=== PATIENT | male | born 1955 | race Caucasian/White ===

== ENCOUNTER → 2020-05-20 | Outpatient (CLI) | payer SELFPAY | LOC: DIA.ED 11:20 | DX: E11.40 Type 2 diabetes mellitus with diabetic neuropathy, unspecified (principal); Z79.4 Long term (current) use of insulin; I10 Essential (primary) hypertension | CPT/HCPCS: G0108 ==

== ENCOUNTER → 2020-06-03 | Outpatient (CLI) | payer SELFPAY | LOC: DIA.ED 13:08 | DX: E11.40 Type 2 diabetes mellitus with diabetic neuropathy, unspecified (principal); Z79.4 Long term (current) use of insulin; I10 Essential (primary) hypertension | CPT/HCPCS: G0108 ==

== ENCOUNTER 2022-01-03 11:54 | Emergency (ER) | payer MEDICARE ==
[~2022-01-03] VITALS: Ht 185.4 cm; Wt 81.8 kg
[2022-01-03 12:10] VITALS: TEMP 98.1
[2022-01-03] MEDS ORDERED: NOVOLOG 100U100 U/M1 SQ (12:26)
[2022-01-03 12:43] LABS: BASO # 0.1 K/mm3 (0.0-0.2); BASO % 0.9 % (0.0-2.0); EOS # 0.1 K/mm3 (0.0-0.7); EOS % 0.7 % (0.0-4.0); GRAN # 8.3 K/mm3 (1.4-6.5); GRAN % 81.2 % (42.2-75.2); HEMATOCRIT 40.4 % (42.0-52.0); HEMOGLOBIN 14.3 g/dl (13.5-18.0); LYMPH # 1.3 K/mm3 (1.2-3.4); LYMPH % 12.5 % (20.0-51.0); MEAN CELL VOLUME 87 fl (80.0-100.0); MEAN CORPUSCULAR HEMOGLOBIN 31 pg (27-31); MEAN CORPUSCULAR HGB CONC 35 g/dl (33.0-37.0); MONO # 0.5 K/mm3 (0.1-0.6); MONO % 4.4 % (1.7-9.3); PLATELET COUNT 223 K/mm3 (130-400); RED BLOOD COUNT 4.65 M/mm3 (4.20-5.60); REDCELL DISTRIBUTION WIDTH-CV 13.2 % (11.5-14.5)
[2022-01-03 13:01] LABS: ALANINE AMINOTRANSFERASE 23 U/L (0-55); ALBUMIN 3.6 gm/dL (3.4-4.8); ALKALINE PHOSPHATASE 124 U/L (40-150); ANION GAP 12 mmol/L (7-16); AST,SGOT 14 U/L (5-34); BILIRUBIN,TOTAL 0.3 mg/dL (0.2-1.2); BLOOD UREA NITROGEN 15 mg/dL (8-26); CALCIUM 8.7 mg/dL (8.4-10.2); CARBON DIOXIDE 22 mmol/L (23-31); CHLORIDE 108 mmol/L (98-107); CREATININE, serum 1.48 mg/dL (0.72-1.25); GLUCOSE 67 mg/dL (70-99); POTASSIUM 3.4 mmol/L (3.5-4.5); SODIUM 142 mmol/L (136-145); TOTAL PROTEIN 6.6 gm/dL (6.2-8.1)
[2022-01-03 13:02] LABS: LIPASE < 4 U/L (8-78)
[2022-01-03 13:20] LABS: TROPONIN-I 0.014 ng/mL (0.00-0.033); TSH w REFLEX 0.843 uIU/mL (0.350-4.940)
[2022-01-03 13:30] LABS: COLLECTION METHOD CLEAN CATCH
[2022-01-03 13:39] LABS: MUCOUS Present (NOT PRESENT); SQUAMOUS EPITHELIAL 0-2 /hpf (0-10); URINE BACTERIA None Seen /hpf (NONE SEEN)
[2022-01-03 13:41] LABS: PH 5.5 (5.0-8.5); URINE APPEARANCE Clear (CLEAR/HAZY); URINE COLOR Amber (YELLOW); URINE GLUCOSE 2+ (NEGATIVE); URINE KETONE Negative (NEGATIVE); URINE PROTEIN(semi-quant) 3+ (NEGATIVE)
[2022-01-03 13:42] LABS: URINE BLOOD 1+ (NEGATIVE); URINE NITRATE Negative (NEGATIVE); URINE UROBILINOGEN 0.2 E.U/dL (0.2-1.0)
[2022-01-03 14:16] VITALS: BP 164/90; PULSE 73
== END 2022-01-03 14:18 | disposition home or self-care (01) ==
LOC: COL.ER 11:54
PROVIDERS: Emergency Medicine
DX: E87.6 Hypokalemia (principal); R63.4 Abnormal weight loss; E11.9 Type 2 diabetes mellitus without complications; Z79.4 Long term (current) use of insulin; R79.89 Other specified abnormal findings of blood chemistry; R31.9 Hematuria, unspecified; F17.210 Nicotine dependence, cigarettes, uncomplicated; Z68.23 Body mass index [BMI] 23.0-23.9, adult; Z20.822 Contact with and (suspected) exposure to COVID-19

== ENCOUNTER → 2022-05-26 | Outpatient (CLI) | payer MEDICARE ==
[~2022-05-26] MED LIST: NOVOLOG 100U100 U/M1 SQ
== END ==
LOC: COL.RAD 07:52
DX: I70.213 Atherosclerosis of native arteries of extremities with intermittent claudication, bilateral legs (principal)

== ENCOUNTER 2023-11-25 16:05 | Emergency (ER) | payer MEDICARE ==
[~2023-11-25] VITALS: Ht 185.4 cm; Wt 56.8 kg
[2023-11-25 16:07] VITALS: TEMP 98
[2023-11-25] MEDS ORDERED: NS 1,000 ML IV ONE (16:30)
[2023-11-25 17:09] LABS: BASO # 0.1 K/mm3 (0.0-0.2); BASO % 1.2 % (0.0-2.0); EOS # 0.1 K/mm3 (0.0-0.7); EOS % 0.7 % (0.0-4.0); GRAN # 5.3 K/mm3 (1.4-6.5); GRAN % 72.2 % (42.2-75.2); LYMPH # 1.5 K/mm3 (1.2-3.4); LYMPH % 20.7 % (20.0-51.0); MEAN CELL VOLUME 94 fl (80.0-100.0); MEAN CORPUSCULAR HGB CONC 34 g/dl (33.0-37.0); MONO # 0.4 K/mm3 (0.1-0.6); MONO % 4.8 % (1.7-9.3); PLATELET COUNT 270 K/mm3 (130-400); RED BLOOD COUNT 2.49 M/mm3 (4.20-5.60); REDCELL DISTRIBUTION WIDTH-CV 16.1 % (11.5-14.5)
[2023-11-25 17:17] LABS: HEMATOCRIT 23.3 % (42.0-52.0); HEMOGLOBIN 7.8 g/dl (13.5-18.0); MEAN CORPUSCULAR HEMOGLOBIN 31 pg (27-31)
[2023-11-25 17:25] LABS: ALANINE AMINOTRANSFERASE 13 U/L (0-55); ALBUMIN 2.2 g/dL (3.4-4.8); ALKALINE PHOSPHATASE 115 U/L (40-150); ANION GAP 8 mmol/L (7-16); AST,SGOT 9 U/L (5-34); BILIRUBIN,TOTAL 0.1 mg/dL (0.2-1.2); BLOOD UREA NITROGEN 42 mg/dL (8-26); CALCIUM 7.8 mg/dL (8.4-10.2); CHLORIDE 113 mEq/L (98-107); CREATININE, serum 1.68 mg/dL (0.72-1.25); GLUCOSE 375 mg/dL (70-99); POTASSIUM 4.5 mEq/L (3.5-4.5); SODIUM 140 mEq/L (136-145)
[2023-11-25 17:30] LABS: ACETONE,SERUM NEGATIVE
[2023-11-25] MEDS ORDERED: Insulin Regular Human (NovoLIN R/HumuLIN R) IV ONE (17:45)
[2023-11-25 19:10] VITALS: BP 120/78; PULSE 83
== END 2023-11-25 19:10 | disposition home or self-care (01) ==
LOC: COL.ER 16:05
PROVIDERS: Physician Assistant
DX: E11.65 Type 2 diabetes mellitus with hyperglycemia (principal); Z79.4 Long term (current) use of insulin; Z87.891 Personal history of nicotine dependence
CPT/HCPCS: J1815; J7030

== ENCOUNTER 2023-12-17 10:56 | Emergency (ER) | payer MEDICARE ==
[~2023-12-17] VITALS: Ht 185.4 cm; Wt 52.7 kg
[2023-12-17 10:57] VITALS: TEMP 97.5
[2023-12-17] MEDS ORDERED: Dextrose 50% Water 25 GM/50 ML SYRINGE IV ONE (12:00)
[2023-12-17 12:15] LABS: BASO # 0.1 K/mm3 (0.0-0.2); BASO % 0.5 % (0.0-2.0); EOS # 0.1 K/mm3 (0.0-0.7); EOS % 0.4 % (0.0-4.0); GRAN # 13.9 K/mm3 (1.4-6.5); LYMPH # 1.5 K/mm3 (1.2-3.4); MEAN CELL VOLUME 95 fl (80.0-100.0); MEAN CORPUSCULAR HGB CONC 32 g/dl (33.0-37.0); MEAN PLATELET VOLUME 10.5 fl (7.4-10.4); MONO # 0.6 K/mm3 (0.1-0.6); MONO % 3.7 % (1.7-9.3); PLATELET COUNT 309 K/mm3 (130-400); RED BLOOD COUNT 2.76 M/mm3 (4.20-5.60)
[2023-12-17 12:21] LABS: HEMATOCRIT 26.1 % (42.0-52.0); HEMOGLOBIN 8.4 g/dl (13.5-18.0); MEAN CORPUSCULAR HEMOGLOBIN 30 pg (27-31)
[2023-12-17 12:43] LABS: BILIRUBIN,TOTAL 0.2 mg/dL (0.2-1.2); CREATININE, serum 1.39 mg/dL (0.72-1.25); POTASSIUM 3.6 mEq/L (3.5-4.5); TOTAL PROTEIN 5.7 g/dl (6.2-8.1)
[2023-12-17 13:45] LABS: COLLECTION METHOD CLEAN CATCH
[2023-12-17 13:57] LABS: URINE APPEARANCE TURBID (CLEAR/HAZY); URINE BLOOD NEGATIVE (NEGATIVE); URINE COLOR YELLOW (YELLOW); URINE GLUCOSE NEGATIVE (NEGATIVE); URINE KETONE NEGATIVE (NEGATIVE); URINE NITRATE NEGATIVE (NEGATIVE); URINE PROTEIN(semi-quant) 1+ (NEGATIVE); URINE UROBILINOGEN 0.2 E.U/dL (0.2-1.0)
[2023-12-17 14:25] LABS: URINE WBC >50 /hpf (0-2)
[2023-12-17] MEDS ORDERED: CEPHALEXIN500 M1 PO (14:37)
[2023-12-17] MEDS ORDERED: cefTRIAXone 1 G in Water For Injection,Sterile 10 ML IV ONE (14:45)
[2023-12-17 15:35] VITALS: BP 144/102; PULSE 61
== END 2023-12-17 15:45 | disposition home or self-care (01) ==
LOC: COL.ER 10:56
PROVIDERS: Nurse Practitioner
DX: E13.649 Other specified diabetes mellitus with hypoglycemia without coma (principal); N39.0 Urinary tract infection, site not specified; F17.210 Nicotine dependence, cigarettes, uncomplicated; Z79.4 Long term (current) use of insulin
CPT/HCPCS: J0696